=== PATIENT | male | born 1980 | race Caucasian/White ===

== ENCOUNTER 2020-11-30 08:00 | Emergency (ER) | payer BC ==
[2020-11-30] MEDS ORDERED: Ondansetron 4 MG/2 ML SDV IVPUSH ONE ×2 (08:10→08:59)
[2020-11-30] MEDS ORDERED: Sodium Chloride 0.9% 2.5 ML Syringe FLUSH PRN (08:10)
[2020-11-30] MEDS ORDERED: Morphine 4 MG/ML Syringe IM ONE (08:10)
[2020-11-30] MEDS ORDERED: Sodium Chloride 0.9% 10 ML Syringe FLUSH PRN (08:10)
[2020-11-30] MEDS ORDERED: Ondansetron 4 MG/2 ML SDV ONE (08:12)
--- NOTE | 2020-11-30 08:15 | EDM.PDOC ---
ED HPI GENERAL MEDICAL PROBLEM - General Chief Complaint: Genitourinary Problem Stated Complaint: POSSIBLE KIDNEY STONE Time Seen by Provider: 11/30/20 08:02 - History of Present Illness INITIAL COMMENTS - FREE TEXT/NARRATIVE: 40-year-old male who denies any past medical problems or surgeries or allergies with family history of kidney stones presenting with 10 out of 10 right flank pain that started at 6 AM. Symptoms are constant and severe associated with nausea no exacerbating or alleviating factors radiation or other associated symptoms. R FLank Pain Score (Numeric/FACES): 10 - Related Data Allergies Allergy/AdvReac Type Severity Reaction Status Date / Time No Known Allergies Allergy Verified 09/30/14 05:45 Home Meds: Home Meds Acetaminophen/HYDROcodone [Carson 325-10 MG] 1 tab PO Q6H PRN 3 Days #12 tab 11/30/20 [Rx] Ibuprofen 800 mg PO TID 5 Days #15 tablet 11/30/20 [Rx] Past Medical History - Past Health History Medical/Surgical History: Denies Medical/Surgical History ED ROS GENERAL - Review of Systems Review Of Systems: See Below Free Text/Narrative/Comment: General: No fever. Respiratory: No shortness of breath. Cardiac: No chest pain. Gastrointestinal: Per HPI Urinary: No dysuria. Neurologic: No headache. ED EXAM, GENERAL - Physical Exam Exam: See Below Free Text/Narrative:: General Appearance: Very uncomfortable but nontoxic in appearance, writhing somewhat in bed Skin: No rash HEENT: Normocephalic/atraumatic, sclera anicteric, mucous membranes moist Neck: Normal range of motion Chest and Lungs: Bilateral breath sounds, clear to auscultation Cardiovascular: Regular rate and rhythm, no murmur Abdomen: Soft, non-tender Back: Normal Musculoskeletal: No edema or tenderness Neurologic: Awake, alert, no obvious deficits, moving all extremities Psychiatric: Appropriate, cooperative Course - Vital Signs Last Recorded V/S: Last Vital Signs Temp 96.8 F L 11/30/20 08:03 Pulse 75 11/30/20 10:00 Resp 17 11/30/20 10:00 BP 117/72 11/30/20 10:00 Pulse Ox 97 11/30/20 10:00 - Orders/Labs/Meds Orders: Active Orders 24 hr Category Date Time Status Sodium Chloride 0.9% [Saline Flush] Med 11/30/20 08:10 Active 10 ml FLUSH ASDIRECTED PRN Sodium Chloride 0.9% [Saline Flush] Med 11/30/20 08:10 Active 2.5 ml FLUSH ASDIRECTED PRN Saline Lock Insert [OM.PC] Stat Oth 11/30/20 08:10 Ordered Medication Orders Sodium Chloride (Sodium Chloride 0.9% 10 Ml Syringe) 10 ml FLUSH ASDIRECTED PRN PRN Reason: Keep Vein Open Last Admin: 11/30/20 08:18 Dose: 10 ml Documented by: GINNA Sodium Chloride (Sodium Chloride 0.9% 2.5 Ml Syringe) 2.5 ml FLUSH ASDIRECTED PRN PRN Reason: Keep Vein Open Last Admin: 11/30/20 08:18 Dose: 2.5 ml Documented by: GINNA Labs: Laboratory Tests 11/30/20 11/30/20 11/30/20 Range/Units 08:08 08:08 11:20 WBC 7.71 (4.0-11.0) K/uL RBC 5.20 (4.50-5.90) M/uL Hgb 15.8 (13.0-17.0) g/dL Hct 46.3 (38.0-50.0) % MCV 89.0 (80.0-98.0) fL MCH 30.4 (27.0-32.0) pg MCHC 34.1 (31.0-37.0) g/dL RDW Std Deviation 43.9 (28.0-62.0) fl RDW Coeff of Casey 13 (11.0-15.0) % Plt Count 310 (150-400) K/uL MPV 9.50 (7.40-12.00) fL Neut % (Auto) 45.8 L (48.0-80.0) % Lymph % (Auto) 44.6 H (16.0-40.0) % [place] % (Auto) 7.3 (0.0-15.0) % Eos % (Auto) 1.9 (0.0-7.0) % Baso % (Auto) 0.4 (0.0-1.5) % Neut # (Auto) 3.5 (1.4-5.7) K/uL Lymph # (Auto) 3.4 H (0.6-2.4) K/uL [place] # (Auto) 0.6 (0.0-0.8) K/uL Eos # (Auto) 0.2 (0.0-0.7) K/uL Baso # (Auto) 0.0 (0.0-0.1) K/uL Nucleated RBC % 0.0 /100WBC Nucleated RBCs # 0 K/uL Sodium 140 (136-148) mmol/L Potassium 3.2 L (3.5-5.1) mmol/L Chloride 102 (98-107) mmol/L Carbon Dioxide 24.4 (21.0-32.0) mmol/L BUN 21 H (7.0-18.0) mg/dL Creatinine 1.3 (0.8-1.3) mg/dL Est Cr Clr Drug Dosing 89.38 mL/min Estimated GFR (MDRD) > 60.0 ml/min Glucose 180 H (74-106) mg/dL Calcium 9.1 (8.5-10.1) mg/dL Total Bilirubin 0.4 (0.2-1.0) mg/dL AST 17 (15-37) IU/L ALT 30 (14-63) IU/L Alkaline Phosphatase 103 (46-116) U/L Total Protein 7.9 (6.4-8.2) g/dL Albumin 4.0 (3.4-5.0) g/dL Globulin 3.9 (2.6-4.0) g/dL Albumin/Globulin Ratio 1.0 (0.9-1.6) Urine Color YELLOW Urine Appearance HAZY Urine pH 6.0 (5.0-8.0) Ur Specific [place] 1.025 (1.001-1.035) Urine Protein NEGATIVE (NEGATIVE) mg/dL Urine Glucose (UA) NEGATIVE (NEGATIVE) mg/dL Urine Ketones NEGATIVE (NEGATIVE) mg/dL Urine Occult Blood LARGE H (NEGATIVE) Urine Nitrite NEGATIVE (NEGATIVE) Urine Bilirubin NEGATIVE (NEGATIVE) Urine Urobilinogen 0.2 (<2.0) EU/dL Ur Leukocyte Esterase NEGATIVE (NEGATIVE) Urine RBC 20-25 (0-2/HPF) Urine WBC 0-3 (0-5/HPF) Ur Epithelial Cells RARE (NONE-FEW) Urine Bacteria FEW (NEGATIVE) Meds: Medications Generic Name Dose Route Start Last Admin Trade Name Freq PRN Reason Stop Dose Admin Sodium Chloride 10 ml 11/30/20 08:10 11/30/20 08:18 Sodium Chloride 0.9% 10 Ml Syringe FLUSH 10 ml ASDIRECTED PRN Administration Keep Vein Open Sodium Chloride 2.5 ml 11/30/20 08:10 11/30/20 08:18 Sodium Chloride 0.9% 2.5 Ml Syringe FLUSH 2.5 ml ASDIRECTED PRN Administration Keep Vein Open Discontinued Medications Generic Name Dose Route Start Last Admin Trade Name Rui PRN Reason Stop Dose Admin Hydromorphone HCl 1 mg 11/30/20 08:35 11/30/20 08:39 Hydromorphone 1 Mg/Ml Syringe IVPUSH 11/30/20 08:36 1 mg ONETIME ONE Administration Sodium Chloride 1,000 mls @ 999 mls/hr 11/30/20 10:09 11/30/20 10:10 Normal Saline IV 11/30/20 11:09 999 mls/hr .Bolus ONE Administration Ketorolac Tromethamine 15 mg 11/30/20 08:57 11/30/20 09:04 Ketorolac 30 Mg/Ml Sdv IVPUSH 11/30/20 08:58 15 mg ONETIME ONE Administration Morphine Sulfate 4 mg 11/30/20 08:10 11/30/20 08:17 Morphine 4 Mg/Ml Syringe IM 11/30/20 08:11 4 mg ONETIME ONE Administration Morphine Sulfate 4 mg 11/30/20 08:24 11/30/20 08:25 Morphine 4 Mg/Ml Syringe IVPUSH 11/30/20 08:25 Not Given ONETIME ONE Ondansetron HCl 4 mg 11/30/20 08:10 11/30/20 08:16 Ondansetron 4 Mg/2 Ml Sdv IVPUSH 11/30/20 08:11 4 mg ONETIME ONE Administration Ondansetron HCl Confirm 11/30/20 08:12 11/30/20 08:21 Ondansetron 4 Mg/2 Ml Sdv Administered 11/30/20 08:13 Not Given Dose 4 mg .ROUTE .STK-MED ONE Ondansetron HCl 4 mg 11/30/20 08:59 11/30/20 09:02 Ondansetron 4 Mg/2 Ml Sdv IVPUSH 11/30/20 09:00 4 mg ONETIME ONE Administration Departure - Departure Time of Disposition: 11:43 Disposition: Home, Self-Care 01 Condition: Good Clinical Impression: Renal colic on right side - Discharge Information *PRESCRIPTION DRUG MONITORING PROGRAM REVIEWED*: Yes *COPY OF PRESCRIPTION DRUG MONITORING REPORT IN PATIENT DAY: No Prescriptions: Ibuprofen 800 mg PO TID 5 Days #15 tablet Acetaminophen/HYDROcodone [Carson 325-10 MG] 1 tab PO Q6H PRN 3 Days #12 tab PRN Reason: Pain Instructions: Renal Colic, [id number] Referrals: Aldair Melchor MD [Primary Care Provider] - Minal Jain MD [Physician] - 3 Days Forms: ED Department Discharge Additional Instructions: It is my hope and expectation that you will pass this kidney stone within the next few days. Please strain your urine to help you tell when you have passed t he stone. It also can be helpful to bring the stone to the urologist appointment is they are sometimes sent for testing to see if there is anything specific that you can do to limit the risk of kidney stone recurrence.. Please take the ibuprofen as scheduled every 8 hours with food to help keep pain at bay. You can use the Carson as needed for additional uncontrolled pain. Please be sure to call the urologist's office on Wednesday morning to arrange a follow-up appointment. If this kidney stone does not pass on its own in the next several days you may require procedures through the urologist in order to get rid of the stone. The following information is given to patients seen in the emergency department who are being discharged to home. This information is to outline your options for follow-up care. We provide all patients seen in our emergency department with a follow-up referral. The need for follow-up, as well as the timing and circumstances, are variable depending upon the specifics of your emergency department visit. If you don't have a primary care physician on staff, we will provide you with a referral. We always advise you to contact your personal physician following an emergency department visit to inform them of the circumstance of the visit and for follow-up with them and/or the need for any referrals to a consulting specialist. The emergency department will also refer you to a specialist when appropriate. This referral assures that you have the opportunity for follow-up care with a specialist. All of these measure are taken in an effort to provide you with optimal care, which includes your follow-up. Under all circumstances we always encourage you to contact your private physician who remains a resource for coordinating your care. When calling for follow-up care, please make the office aware that this follow-up is from your recent emergency room visit. If for any reason you are refused follow-up, please contact the [facility] Emergency Department at and asked to speak to the emergency department charge nurse. Sepsis Event Note (ED) - Focused Exam Vital Signs: Vital Signs Temp Pulse Resp BP Pulse Ox 11/30/20 10:00 75 17 117/72 97 11/30/20 09:30 74 17 123/74 96 11/30/20 08:41 68 18 146/85 H 100 11/30/20 08:03 96.8 F L 91 18 138/89 98 - My Orders Last 24 Hours: My Active Orders 11/30/20 08:10 Sodium Chloride 0.9% [Saline Flush] 10 ml FLUSH ASDIRECTED PRN Sodium Chloride 0.9% [Saline Flush] 2.5 ml FLUSH ASDIRECTED PRN Saline Lock Insert [OM.PC] Stat - Assessment/Plan Last 24 Hours: My Active Orders 11/30/20 08:10 Sodium Chloride 0.9% [Saline Flush] 10 ml FLUSH ASDIRECTED PRN Sodium Chloride 0.9% [Saline Flush] 2.5 ml FLUSH ASDIRECTED PRN Saline Lock Insert [OM.PC] Stat Assessment:: 40-year-old male presenting with signs and symptoms that are most consistent with renal colic. Patient without anterior abdominal findings that would sug gest appendicitis diverticulitis or biliary pathology. However, there is a consideration as well. Given this CBC CMP and noncontrast CT abdomen pelvis been ordered. Urinalysis as well. Zofran morphine for symptoms and will reassess. No chest pain no shortness of breath nothing to suggest cardiac process. Patient's labs are good. He has clinical signs of dehydration including dry mucous membranes and so IV fluid will be given. CT scan demonstrates a 3 to 4 mm right-sided kidney stone that I believe is the cause of his symptoms. We discussed the importance of scheduled Motrin and as needed Carson as well as the importance of following up with urology. We await urinalysis if this is unremarkable and patient symptoms remain controlled (they are absent at this time) patient will likely be stable for discharge with follow-up. 1140: UA is negative for infection. Pt con't to feel well. Discharged with f/u instructions.
[2020-11-30] MEDS ORDERED: Morphine 4 MG/ML Syringe IVPUSH ONE (08:24)
[2020-11-30] MEDS ORDERED: HYDROmorphone 1 MG/ML Syringe IVPUSH ONE (08:35)
[2020-11-30 08:36] LABS: BLOOD UREA NITROGEN,BUN 21 mg/dL (7.0-18.0); CARBON DIOXIDE,CO2 24.4 mmol/L (21.0-32.0); CHLORIDE,CL 102 mmol/L (98-107); GLUCOSE RANDOM 180 mg/dL (74-106); POTASSIUM,K 3.2 mmol/L (3.5-5.1); SODIUM,NA 140 mmol/L (136-148)
--- NOTE | 2020-11-30 08:56 | CT ---
HISTORY: Flank pain. COMPARISON: None. TECHNIQUE: CT of the abdomen and pelvis. No intravenous contrast. Coronal/sagittal reconstruction images. FINDINGS: Lung bases: There is no pleural or pericardial effusion. Small sliding-type hiatal hernia. No acute airspace disease. No basilar pneumothorax. Abdomen/pelvis: No solid hepatic mass. No perihepatic ascites. No radiopaque gallstone. Spleen size is normal. There is no adrenal mass. There is mild right hydronephrosis and hydroureter. There is a stone present in the right ureter, which is seen at the level of the L3-4 intervertebral disc space. This is seen on image 84, series 201. The stone measures 3-4 mm in dimension. No additional urolith is identified. The urinary bladder and extraperitoneal space of Retzius are clear. There is no pancreatic mass, pancreatic duct dilation, glandular atrophy by CT. The prostate and seminal vesicles are normal. There is no free intraperitoneal air. There is no wall thickening in the small bowel or colon. There is no pneumatosis. There is no portal venous gas. There is no evidence for appendicitis. There is no retroperitoneal, gastrohepatic ligament, or small bowel mesenteric adenopathy. The bone windows demonstrate no suspicious bone lesions. The vertebral body heights are maintained on sagittal reconstruction images. The urolith described above measures 456 Hounsfield units. Impression: 1. Mild right hydronephrosis and hydroureter, secondary to a 3-4 millimeter stone at the level of the L3-4 intervertebral disc space. 2. There are no additional acute findings demonstrated. Please note that all CT scans at this facility use dose modulation, iterative reconstruction, and/or weight-based dosing when appropriate to reduce radiation dose to as low as reasonably achievable. Dictated by Aldair Cunningham MD @ Nov 30 2020 8:48AM Signed by Dr. Aldair Cunningham @ Nov 30 2020 8:54AM
[2020-11-30] MEDS ORDERED: Ketorolac 30 MG/ML SDV IVPUSH ONE (08:57)
[2020-11-30 10:05] VITALS: BP 117/72; PULSE 75
[2020-11-30] MEDS ORDERED: Sodium Chloride 0.9% 1,000 ML IV ONE (10:09)
== END 2020-11-30 11:58 | disposition home or self-care (01) ==
LOC: MW.ED 08:00
DX: N13.2 Hydronephrosis with renal and ureteral calculous obstruction (principal)
CPT/HCPCS: 74176; 80053; 81001; 85025; 96374; 96375; 96376; 99284; J1170; J1885; J2270; J2405; J7030; 99283

== ENCOUNTER 2020-12-21 06:57 | Emergency (ER) | payer BC ==
[2020-12-21] MEDS ORDERED: Sodium Chloride 0.9% 2.5 ML Syringe FLUSH PRN (07:24)
[2020-12-21] MEDS ORDERED: Sodium Chloride 0.9% 10 ML Syringe FLUSH PRN (07:24)
[2020-12-21] MEDS ORDERED: HYDROmorphone 1 MG/ML Syringe IVPUSH ONE ×2 (07:24→09:07)
[2020-12-21] MEDS ORDERED: Ondansetron 4 MG/2 ML SDV IVPUSH ONE (07:24)
--- NOTE | 2020-12-21 07:30 | EDM.PDOC ---
ED HPI GENERAL MEDICAL PROBLEM - General Chief Complaint: Flank Pain Stated Complaint: KIDNEY STONES Time Seen by Provider: 12/21/20 07:13 - History of Present Illness INITIAL COMMENTS - FREE TEXT/NARRATIVE: 40-year-old male with history of right-sided renal colic presenting with sudden onset severe right flank pain. Patient was initially seen by myself on November 30 for right-sided flank pain he had a 3 to 4 mm stone in the right ureter with some resulting hydro-. His pain was controlled with Toradol Zofran he also received narcotics in the ED. He was discharged. Later that day he had a persistent severe episode of pain and required home dose of Toradol. However after that he did quite well. He would have occasional symptoms of urinary urgency without subsequent urination but otherwise is doing well. He followed u p with his primary care doctor yesterday urinalysis showed no microscopic blood and KUB on my preliminary interpretation does not show any sign of a right-sided kidney stone. However, suddenly at 1 AM today the patient developed again severe 10 out of 10 right flank pain at the level of the superior SI joint with radiation of towards the kidney and down into the right testicle. Associated with nausea. Patient took a dose of Toradol at home without improvement. No other associated symptoms. R flank Pain Score (Numeric/FACES): 8 - Related Data Allergies Allergy/AdvReac Type Severity Reaction Status Date / Time No Known Allergies Allergy Verified 12/21/20 07:22 Home Meds: Home Meds Acetaminophen/HYDROcodone [[place] 325-10 MG] 1 tab PO Q6H PRN 3 Days #12 tab 11/30/20 [Rx] Ketorolac [Toradol] 10 mg PO Q6H 20 Days #5 tab 11/30/20 [Rx] Ondansetron [Zofran ODT] 4 mg PO Q6H PRN #20 tab.dis 11/30/20 [Rx] Past Medical History - Past Health History Medical/Surgical History: Denies Medical/Surgical History Social & Family History - Family History Family Medical History: No Pertinent Family History - Caffeine Use Caffeine Use: Reports: None ED ROS GENERAL - Review of Systems Review Of Systems: See Below Free Text/Narrative/Comment: General: No fever. Skin: No rash. Eyes: No vision problems. ENT: No sore throat. Neck: No neck stiffness. Respiratory: No shortness of breath. Cardiac: No chest pain. Gastrointestinal: Per HPI Urinary: Per HPI Musculoskeletal: No myalgias/arthralgias. Neurologic: No headache. ED EXAM, GENERAL - Physical Exam Exam: See Below Free Text/Narrative:: General Appearance: No acute distress, uncomfortable but nontoxic HEENT: Normocephalic/atraumatic, sclera anicteric, mucous membranes moist Neck: Normal range of motion Chest and Lungs: Bilateral breath sounds, clear to auscultation Cardiovascular: Regular rate and rhythm, no murmur Abdomen: Soft, non-tender Back: Normal Musculoskeletal: No edema or tenderness Neurologic: Awake, alert, no obvious deficits, moving all extremities Psychiatric: Appropriate, cooperative Course - Vital Signs Last Recorded V/S: Last Vital Signs Temp 97.1 F 12/21/20 07:14 Pulse 64 12/21/20 08:00 Resp 16 12/21/20 08:00 BP 119/77 12/21/20 08:00 Pulse Ox 97 12/21/20 08:00 - Orders/Labs/Meds Orders: Active Orders 24 hr Category Date Time Status Sodium Chloride 0.9% [Saline Flush] Med 12/21/20 07:24 Active 10 ml FLUSH ASDIRECTED PRN Sodium Chloride 0.9% [Saline Flush] Med 12/21/20 07:24 Active 2.5 ml FLUSH ASDIRECTED PRN Saline Lock Insert [OM.PC] Stat Oth 12/21/20 07:24 Ordered Medication Orders Sodium Chloride (Sodium Chloride 0.9% 10 Ml Syringe) 10 ml FLUSH ASDIRECTED PRN PRN Reason: Keep Vein Open Last Admin: 12/21/20 07:33 Dose: 10 ml Documented by: GINNA Sodium Chloride (Sodium Chloride 0.9% 2.5 Ml Syringe) 2.5 ml FLUSH ASDIRECTED PRN PRN Reason: Keep Vein Open Last Admin: 12/21/20 07:33 Dose: 2.5 ml Documented by: GINNA Labs: Laboratory Tests 12/21/20 12/21/20 12/21/20 Range/Units 07:15 07:15 08:14 WBC 13.39 H (4.0-11.0) K/uL RBC 5.31 (4.50-5.90) M/uL Hgb 15.6 (13.0-17.0) g/dL Hct 45.7 (38.0-50.0) % MCV 86.1 (80.0-98.0) fL MCH 29.4 (27.0-32.0) pg MCHC 34.1 (31.0-37.0) g/dL RDW Std Deviation 39.8 (28.0-62.0) fl RDW Coeff of Casey 13 (11.0-15.0) % Plt Count 308 (150-400) K/uL MPV 8.90 (7.40-12.00) fL Neut % (Auto) 78.7 (48.0-80.0) % Lymph % (Auto) 13.6 L (16.0-40.0) % [place] % (Auto) 7.1 (0.0-15.0) % Eos % (Auto) 0.4 (0.0-7.0) % Baso % (Auto) 0.2 (0.0-1.5) % Neut # (Auto) 10.5 H (1.4-5.7) K/uL Lymph # (Auto) 1.8 (0.6-2.4) K/uL [place] # (Auto) 1.0 H (0.0-0.8) K/uL Eos # (Auto) 0.1 (0.0-0.7) K/uL Baso # (Auto) 0.0 (0.0-0.1) K/uL Sodium 136 (136-148) mmol/L Potassium 3.9 (3.5-5.1) mmol/L Chloride 100 (98-107) mmol/L Carbon Dioxide 23.5 (21.0-32.0) mmol/L BUN 22 H (7.0-18.0) mg/dL Creatinine 1.5 H (0.8-1.3) mg/dL Est Cr Clr Drug Dosing 77.46 mL/min Estimated GFR (MDRD) 51.6 ml/min Glucose 121 H (74-106) mg/dL Calcium 9.5 (8.5-10.1) mg/dL Total Bilirubin 0.5 (0.2-1.0) mg/dL AST 20 (15-37) IU/L ALT 32 (14-63) IU/L Alkaline Phosphatase 96 (46-116) U/L Total Protein 8.1 (6.4-8.2) g/dL Albumin 4.1 (3.4-5.0) g/dL Globulin 4.0 (2.6-4.0) g/dL Albumin/Globulin Ratio 1.0 (0.9-1.6) Urine Color YELLOW Urine Appearance SLT CLOUDY Urine pH 8.5 H (5.0-8.0) Ur Specific [place] 1.020 (1.001-1.035) Urine Protein NEGATIVE (NEGATIVE) mg/dL Urine Glucose (UA) NEGATIVE (NEGATIVE) mg/dL Urine Ketones NEGATIVE (NEGATIVE) mg/dL Urine Occult Blood NEGATIVE (NEGATIVE) Urine Nitrite NEGATIVE (NEGATIVE) Urine Bilirubin NEGATIVE (NEGATIVE) Urine Urobilinogen 0.2 (<2.0) EU/dL Ur Leukocyte Esterase NEGATIVE (NEGATIVE) Urine RBC 0-3 (0-2/HPF) Urine WBC 0-1 (0-5/HPF) Ur Epithelial Cells RARE (NONE-FEW) Amorphous Sediment LIGHT (NEGATIVE) Urine Bacteria FEW (NEGATIVE) Urine Mucus LIGHT (NONE-MOD) Meds: Medications Generic Name Dose Route Start Last Admin Trade Name Freq PRN Reason Stop Dose Admin Sodium Chloride 10 ml 12/21/20 07:24 12/21/20 07:33 Sodium Chloride 0.9% 10 Ml Syringe FLUSH 10 ml ASDIRECTED PRN Administration Keep Vein Open Sodium Chloride 2.5 ml 12/21/20 07:24 12/21/20 07:33 Sodium Chloride 0.9% 2.5 Ml Syringe FLUSH 2.5 ml ASDIRECTED PRN Administration Keep Vein Open Discontinued Medications Generic Name Dose Route Start Last Admin Trade Name Freq PRN Reason Stop Dose Admin Hydromorphone HCl 1 mg 12/21/20 07:24 12/21/20 07:31 Hydromorphone 1 Mg/Ml Syringe IVPUSH 12/21/20 07:25 1 mg ONETIME ONE Administration Hydromorphone HCl 1 mg 12/21/20 09:07 12/21/20 09:21 Hydromorphone 1 Mg/Ml Syringe IVPUSH 12/21/20 09:08 1 mg ONETIME ONE Administration Lactated Ringer's 1,000 mls @ 999 mls/hr 12/21/20 08:30 12/21/20 08:42 Ringers, Lactated IV 12/21/20 09:30 999 mls/hr .BOLUS ONE Administration Ondansetron HCl 4 mg 12/21/20 07:24 12/21/20 07:30 Ondansetron 4 Mg/2 Ml Sdv IVPUSH 12/21/20 07:25 4 mg ONETIME ONE Administration Departure - Departure Time of Disposition: 09:39 Disposition: Home, Self-Care 01 Condition: Good Clinical Impression: Ureteric colic - Discharge Information *PRESCRIPTION DRUG MONITORING PROGRAM REVIEWED*: Yes *COPY OF PRESCRIPTION DRUG MONITORING REPORT IN PATIENT DAY: No Instructions: Renal Colic Forms: ED Department Discharge Additional Instructions: Please follow-up with Dr. Anat Hayden, a urologist in [place]. Please call her office first thing Wednesday morning. [facility], [employer] [address] [place] [address] [phone] Her office is located on the 5th floor. If you develop uncontrollable pain or fever over the weekend please return to the ER. You can take the Toradol and [place] at home to help with the pain. The following information is given to patients seen in the emergency department who are being discharged to home. This information is to outline your options for follow-up care. We provide all patients seen in our emergency department with a follow-up referral. The need for follow-up, as well as the timing and circumstances, are variable depending upon the specifics of your emergency department visit. If you don't have a primary care physician on staff, we will provide you with a referral. We always advise you to contact your personal physician following an emergency department visit to inform them of the circumstance of the visit and for follow-up with them and/or the need for any referrals to a consulting specialist. The emergency department will also refer you to a specialist when appropriate. This referral assures that you have the opportunity for follow-up care with a specialist. All of these measure are taken in an effort to provide you with optimal care, which includes your follow-up. Under all circumstances we always encourage you to contact your private physician who remains a resource for coordinating your care. When calling for follow-up care, please make the office aware that this follow-up is from your recent emergency room visit. If for any reason you are refused follow-up, please contact the [facility] Emergency Department at and asked to speak to the emergency department charge nurse. Sepsis Event Note (ED) - Evaluation Sepsis Screening Result: No Definite Risk - Focused Exam Vital Signs: Vital Signs Temp Pulse Resp BP Pulse Ox 12/21/20 08:00 64 16 119/77 97 12/21/20 07:14 97.1 F 75 17 147/81 H 100 - My Orders Last 24 Hours: My Active Orders 12/21/20 07:24 Sodium Chloride 0.9% [Saline Flush] 10 ml FLUSH ASDIRECTED PRN Sodium Chloride 0.9% [Saline Flush] 2.5 ml FLUSH ASDIRECTED PRN Saline Lock Insert [OM.PC] Stat - Assessment/Plan Last 24 Hours: My Active Orders 12/21/20 07:24 Sodium Chloride 0.9% [Saline Flush] 10 ml FLUSH ASDIRECTED PRN Sodium Chloride 0.9% [Saline Flush] 2.5 ml FLUSH ASDIRECTED PRN Saline Lock Insert [OM.PC] Stat Assessment:: 40-year-old male presenting with acute onset right flank pain that would be consistent with renal colic. That said KUB yesterday did not show any signs of clear stone. Given the clinical course I suspect that the symptomatic stone from November 30 did in fact passed. He was doing quite well until this morning. Possibility of testicular torsion considered as well but patient without mechanism for this. CBC BMP urinalysis and Dilaudid and Zofran ordered. Given the recent negative KUB CT scan ordered as well. If this is nondiagnostic then would consider testicular ultrasound and other testing as indicated. 0830: Pt with 4mm right sided UVJ stone with resulting hydronephrosis that I believe is the cause of his symptoms. Pt with a minimal ZENAIDA as well and will give IVF for this as we await urinalysis result. We do not have an active u rologist in [place] at this time. Given this patient discussed with Dr. Guillory in [place]. 0905: Urine without sign of infection 0940: Pt's sx started to return and he was given an additional round of pain medication, still too early for additional toradol. Pt's sx now improved. He will f/u with urology in [place].
--- NOTE | 2020-12-21 08:06 | CT ---
Indication: Right flank pain Technique: A CT volumetric acquisition was performed of the abdomen and pelvis without IV contrast. Comparison: CT abdomen pelvis dated 11/30/2020 Findings: The lung bases are clear. The unenhanced liver, spleen and pancreas appear normal. Gallbladder and bile ducts are normal in size. The adrenal glands appear normal. The left kidney appears normal. There is edema and mild hydronephrosis within the right kidney. The dilated right ureter can be followed distally into the pelvis where there is an obstructing 4 mm stone at the ureterovesical juncture. There is no evidence of retroperitoneal lymphadenopathy. Small intestine and colon appear normal. Prostate gland appears normal in size. Impression: Obstructing 4 mm calculus noted at the right ureterovesical juncture. Please note that all CT scans at this facility use dose modulation, iterative reconstruction, and/or weight-based dosing when appropriate to reduce radiation dose to as low as reasonably achievable. Dictated by Jesus Koo MD @ Dec 21 2020 8:00AM Signed by Dr. Jesus Koo @ Dec 21 2020 8:05AM
[2020-12-21 08:13] LABS: CARBON DIOXIDE,CO2 23.5 mmol/L (21.0-32.0); POTASSIUM,K 3.9 mmol/L (3.5-5.1)
[2020-12-21 08:14] VITALS: PULSE 64
[2020-12-21] MEDS ORDERED: Lactated Ringers 1,000 ML IV ONE (08:30)
[2020-12-21 09:57] VITALS: BP 115/72
== END 2020-12-21 09:56 | disposition home or self-care (01) ==
LOC: MW.ED 06:57
DX: N23 Unspecified renal colic (principal); Z79.899 Other long term (current) drug therapy
CPT/HCPCS: 36415; 74176; 80053; 81001; 85025; 96374; 96375; 96376; 99284; J1170; J2405; J7120